=== PATIENT | female | born 1970 | race Caucasian/White ===

== ENCOUNTER 2020-12-26 19:15 | Emergency (ER) | payer BC ==
[~2020-12-26] VITALS: Ht 170.2 cm; Wt 56.7 kg
[2020-12-26 19:30] VITALS: BP 163/104
== END 2020-12-26 23:00 | disposition left against medical advice (07) ==
LOC: ER 19:15
DX: N30.90 Cystitis, unspecified without hematuria (principal); Z53.21 Procedure and treatment not carried out due to patient leaving prior to being seen by health care provider